=== PATIENT | male | born 1965 | race Two or more races ===

== ENCOUNTER 2016-12-10 22:41 | Emergency (ER) | payer OTHER ==
[2016-12-10 22:52] VITALS: BP 118/78
== END 2016-12-11 01:13 | disposition home or self-care (01) ==
LOC: ED 22:41
DX: L29.9 Pruritus, unspecified (principal)
CPT/HCPCS: J1100

== ENCOUNTER 2017-07-28 12:56 | Emergency (ER) | payer OTHER ==
[~2017-07-28] VITALS: Ht 167.6 cm; Wt 68.7 kg
[2017-07-28 15:01] VITALS: BP 111/85
== END 2017-07-28 15:01 | disposition home or self-care (01) ==
LOC: ED 12:56
DX: M10.061 Idiopathic gout, right knee (principal)

== ENCOUNTER 2018-01-03 01:00 | Emergency (ER) | payer OTHER ==
[~2018-01-03] VITALS: Ht 167.6 cm; Wt 67.8 kg
[2018-01-03 01:07] VITALS: Ht 167.6 cm; Wt 67.8 kg
[2018-01-03 02:20] VITALS: BP 114/77
== END 2018-01-03 02:20 | disposition home or self-care (01) ==
LOC: ED 01:00
DX: H10.13 Acute atopic conjunctivitis, bilateral (principal); M19.90 Unspecified osteoarthritis, unspecified site
CPT/HCPCS: J1100

== ENCOUNTER 2018-12-15 10:01 | Emergency (ER) | payer OTHER ==
[~2018-12-15] VITALS: Ht 167.6 cm; Wt 72.1 kg
[2018-12-15 11:55] VITALS: BP 113/77
== END 2018-12-15 11:55 | disposition home or self-care (01) ==
LOC: ED 10:01
DX: H10.13 Acute atopic conjunctivitis, bilateral (principal); M19.90 Unspecified osteoarthritis, unspecified site; J34.89 Other specified disorders of nose and nasal sinuses; R07.0 Pain in throat
CPT/HCPCS: J1100

== ENCOUNTER 2019-02-06 09:14 | Emergency (ER) | payer OTHER ==
[~2019-02-06] VITALS: Ht 167.6 cm; Wt 70.4 kg
[2019-02-06 09:25] VITALS: BP 112/80; Ht 167.6 cm; Wt 70.4 kg
== END 2019-02-06 10:23 | disposition home or self-care (01) ==
LOC: ED 09:14
DX: M25.562 Pain in left knee (principal); M19.90 Unspecified osteoarthritis, unspecified site

== ENCOUNTER 2019-09-26 22:55 | Emergency (ER) | payer OTHER ==
[~2019-09-26] VITALS: Ht 167.6 cm; Wt 72.6 kg
[2019-09-26 22:59] VITALS: BP 127/86; Ht 167.6 cm; Wt 72.6 kg
[2019-09-26 23:57] LABS: CALCIUM 8.8 mg/dL (8.5-10.1); CARBON DIOXIDE 32.1 mmol/L (21-32); CHLORIDE SERUM 99 mmol/L (98-107); CREATININE SERUM 1.1 mg/dL (0.7-1.3); GFR1 > 60 mL/min; GLUCOSE SERUM 94 mg/dL (74-106); POTASSIUM SERUM 3.6 mmol/L (3.5-5.1); SODIUM SERUM 136 mmol/L (136-145)
[2019-09-26 23:59] LABS: BASOPHIL % 0.6 % (0-2); PLATELET COUNT 147 x10^3mcL (130-400)
[2019-09-27] LABS: RED CELL DISTRIBUTION WIDTH 14.6 % (11.5-14.5)
[2019-09-27 00:06] LABS: ALBUMIN 3.8 g/dL (3.4-5.0); ALKALINE PHOSPHATASE 77 U/L (46-116); ALT/SGPT 85 U/L (16-63); AST/SGOT 41 U/L (15-37); BILIRUBIN TOTAL 0.6 mg/dL (0.20-1.00); TOTAL PROTEIN, SERUM 8.2 g/dL (6.4-8.2)
== END 2019-09-27 01:34 | disposition home or self-care (01) ==
LOC: ED 22:55
PROVIDERS: Emergency Medicine
DX: J10.1 Influenza due to other identified influenza virus with other respiratory manifestations (principal); K21.9 Gastro-esophageal reflux disease without esophagitis; I44.7 Left bundle-branch block, unspecified
CPT/HCPCS: 36415; 87804

== ENCOUNTER 2019-11-09 20:22 | Emergency (ER) | payer OTHER ==
[~2019-11-09] VITALS: Ht 167.6 cm; Wt 71.3 kg
[2019-11-09 20:45] VITALS: Ht 167.6 cm; Wt 71.3 kg
[2019-11-09 21:29] LABS: microscopic required? NO
[2019-11-09 21:49] LABS: UA SPECIFIC GRAVITY >=1.030 (1.005-1.035); urine erythrocyte NEGATIVE (NEGATIVE)
[2019-11-09 23:05] VITALS: BP 125/65
== END 2019-11-09 23:06 | disposition home or self-care (01) ==
LOC: ED 20:22
PROVIDERS: Emergency Medicine
DX: R19.7 Diarrhea, unspecified (principal); R10.32 Left lower quadrant pain; M19.90 Unspecified osteoarthritis, unspecified site
CPT/HCPCS: J0500

== ENCOUNTER 2019-12-01 19:20 | Emergency (ER) | payer OTHER ==
[~2019-12-01] VITALS: Ht 167.6 cm; Wt 72.6 kg
[2019-12-01 19:36] VITALS: Ht 167.6 cm; Wt 72.6 kg
[2019-12-01 23:43] VITALS: BP 120/68
== END 2019-12-01 23:43 | disposition home or self-care (01) ==
LOC: ED 19:20
DX: H10.13 Acute atopic conjunctivitis, bilateral (principal); M19.90 Unspecified osteoarthritis, unspecified site

== ENCOUNTER 2020-01-21 13:23 | Emergency (ER) | payer OTHER ==
[~2020-01-21] VITALS: Ht 167.6 cm; Wt 69.4 kg
[2020-01-21 13:27] VITALS: Ht 167.6 cm; Wt 69.4 kg
[2020-01-21 13:49] VITALS: BP 107/72
== END 2020-01-21 13:49 | disposition home or self-care (01) ==
LOC: ED 13:23
DX: J30.9 Allergic rhinitis, unspecified (principal)

== ENCOUNTER 2020-02-04 16:09 | Emergency (ER) | payer OTHER ==
[~2020-02-04] VITALS: Ht 167.6 cm; Wt 68.0 kg
[2020-02-04 16:22] VITALS: Ht 167.6 cm; Wt 68.0 kg
[2020-02-04 16:52] LABS: PLATELET COUNT 193 x10^3mcL (130-400); RED CELL DISTRIBUTION WIDTH 12.3 % (11.5-14.5)
[2020-02-04 17:37] LABS: ALT/SGPT 0 U/L (16-63); BILIRUBIN TOTAL 0.02 mg/dL (0.20-1.00)
[2020-02-04 17:49] LABS: CARBON DIOXIDE 28.3 mmol/L (21-32); CHLORIDE SERUM 102 mmol/L (98-107); CREATININE SERUM 0.9 mg/dL (0.7-1.3); GFR1 > 60 mL/min; GLUCOSE SERUM 112 mg/dL (74-106); POTASSIUM SERUM 3.6 mmol/L (3.5-5.1); SODIUM SERUM 140 mmol/L (136-145)
[2020-02-04 17:53] LABS: ALBUMIN 3.9 g/dL (3.4-5.0); ALKALINE PHOSPHATASE 77 U/L (46-116); AST/SGOT 19 U/L (15-37); MAGNESIUM 2.2 mg/dL (1.8-2.4); TOTAL PROTEIN, SERUM 7.9 g/dL (6.4-8.2)
[2020-02-04 18:02] LABS: AMPHETAMINE QUAL UR NONE DETECTED (See below)
[2020-02-04 19:10] VITALS: BP 114/81
[2020-02-06 04:06] LABS: RAPID PLASMA REAGIN Non Reactive (Non Reactive)
== END 2020-02-04 19:10 | disposition home or self-care (01) ==
LOC: ED 16:09
PROVIDERS: Emergency Medicine
DX: R42 Dizziness and giddiness (principal); M06.9 Rheumatoid arthritis, unspecified
CPT/HCPCS: 36415

== ENCOUNTER 2020-02-23 13:12 | Emergency (ER) | payer OTHER ==
[~2020-02-23] VITALS: Ht 172.7 cm; Wt 70.8 kg
[2020-02-23 13:22] VITALS: Ht 172.7 cm; Wt 70.8 kg
[2020-02-23 14:10] VITALS: BP 118/82
== END 2020-02-23 14:10 | disposition home or self-care (01) ==
LOC: ED 13:12
DX: S81.852A Open bite, left lower leg, initial encounter (principal); S81.851A Open bite, right lower leg, initial encounter; S41.152A Open bite of left upper arm, initial encounter; S41.151A Open bite of right upper arm, initial encounter; W57.XXXA Bitten or stung by nonvenomous insect and other nonvenomous arthropods, initial encounter; Y93.89 Activity, other specified; Y92.89 Other specified places as the place of occurrence of the external cause; Y99.8 Other external cause status

== ENCOUNTER 2020-02-24 06:09 | Emergency (ER) | payer OTHER ==
[~2020-02-24] VITALS: Ht 167.6 cm; Wt 70.9 kg
[2020-02-24 06:42] VITALS: BP 111/79
== END 2020-02-24 06:42 | disposition home or self-care (01) ==
LOC: ED 06:09
DX: T14.8XXD Other injury of unspecified body region, subsequent encounter (principal); W57.XXXD Bitten or stung by nonvenomous insect and other nonvenomous arthropods, subsequent encounter
CPT/HCPCS: J7512